=== PATIENT | male | born 1985 | race African-American/Black ===

== ENCOUNTER 2022-08-05 07:34 | Emergency (ER) | payer MEDICAID ==
[~2022-08-05] VITALS: Ht 182.9 cm; Wt 91.0 kg
[2022-08-05 07:44] VITALS: BP 119/67
[2022-08-05] MEDS ORDERED: AMOX1TAB16 PO (08:03)
[2022-08-05] MEDS ORDERED: IBUP-2030 PO (08:03)
[2022-08-05] MEDS ORDERED: T3 PO (08:03)
== END 2022-08-05 08:52 | disposition home or self-care (01) ==
LOC: ER 07:34
DX: K04.7 Periapical abscess without sinus (principal); G40.909 Epilepsy, unspecified, not intractable, without status epilepticus
CPT/HCPCS: 99283